=== PATIENT | female | born 1985 | race Caucasian/White ===

== ENCOUNTER 2021-05-12 21:21 | Emergency (ER) | payer BC ==
[2021-05-12] MEDS ORDERED: SUBOXONE 2 MG-1 EACH SL (21:37)
[2021-05-12] MEDS ORDERED: MEDROL DOSEPAK4 MG PO (22:18)
== END 2021-05-12 22:35 | disposition home or self-care (01) ==
LOC: ED 21:21
DX: L25.9 Unspecified contact dermatitis, unspecified cause (principal); Z79.899 Other long term (current) drug therapy

== ENCOUNTER 2022-10-15 03:32 | Emergency (ER) | payer BC ==
[~2022-10-15] VITALS: Ht 170.1 cm; Wt 68.0 kg
[~2022-10-15 03:32] MED LIST: MEDROL DOSEPAK4 MG PO; SUBOXONE 2 MG-1 EACH SL
[2022-10-15] MEDS ORDERED: ZITHROMAX250 MG PO (05:10)
[2022-10-15] MEDS ORDERED: TOBREX3.5 GM OPH (05:38)
== END 2022-10-15 05:12 | disposition home or self-care (01) ==
LOC: ED 03:32
DX: J02.9 Acute pharyngitis, unspecified (principal)

== ENCOUNTER 2022-12-06 03:21 | Emergency (ER) | payer BC ==
[~2022-12-06] VITALS: Ht 172.7 cm; Wt 68.0 kg
[~2022-12-06 03:21] MED LIST changes: +TOBREX3.5 GM OPH; +ZITHROMAX250 MG PO
[2022-12-06 04:05] LABS: BASO % 0.4 % (0.0-1.0); EOS # 0.2 10*3/uL (0.0-0.4); EOS % 3.3 % (1.0-4.0); LYMPH # 1.7 10*3/uL (1.3-4.4); LYMPH % 33.6 % (27.0-41.0); MEAN CELL VOLUME 86.4 fl (81.0-99.0); MEAN CORPUSCULAR HGB 29.2 pg (27.0-31.0); MEAN CORPUSCULAR HGB CONC 33.8 g/dl (33.0-37.0); MEAN PLATELET VOLUME 10.9 fl (9.6-12.3); MONO # 0.6 10*3/uL (0.1-1.0); MONO % 11.2 % (3.0-9.0); NEUT # 2.5 10*3/uL (2.3-7.9); NEUT % 51.3 % (47.0-73.0); PLATELET COUNT AUTOMATED 255 10*3/uL (130-400); RED BLOOD COUNT 5.21 10*6/uL (4.10-5.10); RED CELL DISTRI WIDTH 11.9 % (0-14.5); WHITE BLOOD COUNT 4.9 10*3/uL (4.8-10.8)
[2022-12-06 04:15] LABS: INTERNATIONAL NORM RATIO 1.1 (2.0-3.5)
[2022-12-06 04:22] LABS: ALKALINE PHOSPHATASE 52 U/L (46-116); BUN 15 mg/dl (9-23); CHLORIDE 105 mmol/L (98-107); POTASSIUM 4.3 mmol/L (3.4-5.1); SGPT/ALT 12 U/L (10-49); TOTAL PROTEIN 6.9 gm/dL (6.0-8.0)
== END 2022-12-06 07:05 | disposition home or self-care (01) ==
LOC: ED 03:21
PROVIDERS: Emergency Medicine
DX: R00.2 Palpitations (principal); R07.9 Chest pain, unspecified

== ENCOUNTER 2024-02-02 00:51 | Emergency (ER) | payer OTHER, BC ==
[~2024-02-02] VITALS: Wt 68.0 kg
[2024-02-02] MEDS ORDERED: Ondansetron Hydrochloride 4 MG/2 ML VIAL IV ONE (04:05)
[2024-02-02] MEDS ORDERED: Thiamine 200 MG/2 ML VIAL IV ONE (04:05)
[2024-02-02] MEDS ORDERED: SODIUM CHLORIDE 0.9% 1,000 ML IV ONE (04:05)
[2024-02-02] MEDS ORDERED: HYDROmorphONE Hydrochloride 0.5 MG/0.5 ML SYRINGE IV ONE ×2 (04:40→05:25)
[2024-02-02] MEDS ORDERED: HYDROCODONE-AC1 EAC1 PO (05:47)
[2024-02-02] MEDS ORDERED: Bacitracin Zinc 14 GM TUBE T ONE (05:50)
== END 2024-02-02 06:00 | disposition home or self-care (01) ==
LOC: ED 00:51
DX: S52.501A Unspecified fracture of the lower end of right radius, initial encounter for closed fracture (principal); S52.601A Unspecified fracture of lower end of right ulna, initial encounter for closed fracture; V49.9XXA Car occupant (driver) (passenger) injured in unspecified traffic accident, initial encounter; Y93.89 Activity, other specified; Y92.410 Unspecified street and highway as the place of occurrence of the external cause; Y99.9 Unspecified external cause status

== ENCOUNTER → 2024-02-03 | Outpatient (CLI) | payer BC ==
[~2024-02-03] MED LIST changes: +HYDROCODONE-AC1 EAC1 PO
== END | disposition home or self-care (01) ==
LOC: ORTHO 10:20
PROVIDERS: ATTEND Orthopaedic Surgery
DX: S52.511A Displaced fracture of right radial styloid process, initial encounter for closed fracture (principal); S63.024A Dislocation of radiocarpal joint of right wrist, initial encounter; S62.101A Fracture of unspecified carpal bone, right wrist, initial encounter for closed fracture; V29.99XA Rider (driver) (passenger) of other motorcycle injured in unspecified traffic accident, initial encounter; Y93.89 Activity, other specified; Y92.89 Other specified places as the place of occurrence of the external cause; Y99.8 Other external cause status

== ENCOUNTER → 2024-02-06 | Day surgery (SDC) | payer BC ==
[2024-02-05 10:32] VITALS: BP 122/81
[~2024-02-06] VITALS: Ht 170.1 cm; Wt 70.3 kg
[~2024-02-06] MED LIST changes: +CEFAZOLIN SODIUM IV SCH; +DEXAMETHASONE SODIUM PHOSP/PRESERVATIVE FREE 10 MG/ML VIAL ONE; +HYDROmorphONE Hydrochloride 1 MG/ML SYR IV ONE; +HYDROmorphONE Hydrochloride 1 ML IV ONE; +INFUSION IV SCH; +Lactated Ringer's Solution 1,000 ML IV ONE; +Lactated Ringer's Solution 1,000 ML IV SCH; +Midazolam Hydrochloride 2 MG/2 ML VIAL IV STA; +Midazolam Hydrochloride 2 MG/2 ML VIAL ONE; +PROPOFOL 200 MG/20 ML VIAL IV ONE; +Ropivacaine Hydrochloride 5 MG/ML 20 ML AMP IJ ONE; +SEVOFLURANE 250 ML BOT INH ONE; +SODIUM CHLOR IV SCH; +ceFAZolin sodium/sodium chlor 20 ML IV ONE
[2024-02-06 07:45] VITALS: BP 124/76
[2024-02-06 10:06] VITALS: BP 130/55
[2024-02-06 10:21] VITALS: BP 126/58
[2024-02-06 10:36] VITALS: BP 127/80
[2024-02-06 10:51] VITALS: BP 118/74
[2024-02-06 11:01] VITALS: BP 110/68
== END | disposition home or self-care (01) ==
LOC: SDC 03:25
PROVIDERS: ATTEND Orthopaedic Surgery
DX: S52.571A Other intraarticular fracture of lower end of right radius, initial encounter for closed fracture (principal); F10.90 Alcohol use, unspecified, uncomplicated; Z87.891 Personal history of nicotine dependence; Z98.890 Other specified postprocedural states; Z79.899 Other long term (current) drug therapy; Z79.891 Long term (current) use of opiate analgesic; X58.XXXA Exposure to other specified factors, initial encounter; Y93.89 Activity, other specified; Y92.89 Other specified places as the place of occurrence of the external cause; Y99.8 Other external cause status

== ENCOUNTER → 2024-02-19 | Outpatient (CLI) | payer BC ==
[~2024-02-19] MED LIST changes: -CEFAZOLIN SODIUM IV SCH; -DEXAMETHASONE SODIUM PHOSP/PRESERVATIVE FREE 10 MG/ML VIAL ONE; -HYDROmorphONE Hydrochloride 1 MG/ML SYR IV ONE; -HYDROmorphONE Hydrochloride 1 ML IV ONE; -INFUSION IV SCH; -Lactated Ringer's Solution 1,000 ML IV ONE; -Lactated Ringer's Solution 1,000 ML IV SCH; -Midazolam Hydrochloride 2 MG/2 ML VIAL IV STA; -Midazolam Hydrochloride 2 MG/2 ML VIAL ONE; -PROPOFOL 200 MG/20 ML VIAL IV ONE; -Ropivacaine Hydrochloride 5 MG/ML 20 ML AMP IJ ONE; -SEVOFLURANE 250 ML BOT INH ONE; -SODIUM CHLOR IV SCH; -ceFAZolin sodium/sodium chlor 20 ML IV ONE
== END | disposition home or self-care (01) ==
LOC: ORTHO 09:04
PROVIDERS: ATTEND Orthopaedic Surgery
DX: S52.511D Displaced fracture of right radial styloid process, subsequent encounter for closed fracture with routine healing (principal); X58.XXXD Exposure to other specified factors, subsequent encounter

== ENCOUNTER → 2024-03-04 | Outpatient (CLI) | payer BC | END | disposition home or self-care (01) | LOC: ORTHO 02:57 | PROVIDERS: ATTEND Orthopaedic Surgery | DX: S52.511D Displaced fracture of right radial styloid process, subsequent encounter for closed fracture with routine healing (principal); X58.XXXD Exposure to other specified factors, subsequent encounter ==

== ENCOUNTER → 2024-03-18 | Outpatient (CLI) | payer BC | END | disposition home or self-care (01) | LOC: ORTHO 01:46 | PROVIDERS: ATTEND Orthopaedic Surgery | DX: S52.511D Displaced fracture of right radial styloid process, subsequent encounter for closed fracture with routine healing (principal); X58.XXXD Exposure to other specified factors, subsequent encounter ==

== ENCOUNTER → 2024-04-29 | Outpatient (CLI) | payer BC | END | disposition home or self-care (01) | LOC: ORTHO 02:16 | PROVIDERS: ATTEND Orthopaedic Surgery | DX: S52.511D Displaced fracture of right radial styloid process, subsequent encounter for closed fracture with routine healing (principal); M19.031 Primary osteoarthritis, right wrist; X58.XXXD Exposure to other specified factors, subsequent encounter ==

== ENCOUNTER 2025-01-15 15:36 | Emergency (ER) | payer BC ==
[~2025-01-15] VITALS: Ht 170.1 cm; Wt 68.0 kg
== END 2025-01-15 16:34 | disposition home or self-care (01) ==
LOC: ED 15:36
DX: T19.2XXA Foreign body in vulva and vagina, initial encounter (principal); W44.8XXA Other foreign body entering into or through a natural orifice, initial encounter

== ENCOUNTER → 2025-03-12 | Outpatient (CLI) | payer BC ==
[2025-03-12 09:34] LABS: BASO % 0.4 % (0.0-1.0); EOS # 0.1 10*3/uL (0.0-0.4); EOS % 2.5 % (1.0-4.0); HEMATOCRIT 40.8 % (37.0-47.0); MEAN CELL VOLUME 79.7 fl (81.0-99.0); MEAN CORPUSCULAR HGB 26.8 pg (27.0-31.0); MEAN CORPUSCULAR HGB CONC 33.6 g/dl (33.0-37.0); MEAN PLATELET VOLUME 11.1 fl (9.6-12.3); MONO # 0.4 10*3/uL (0.1-1.0); MONO % 6.7 % (3.0-9.0); NEUT % 54.9 % (47.0-73.0); PLATELET COUNT AUTOMATED 289 10*3/uL (130-400); RED BLOOD COUNT 5.12 10*6/uL (4.10-5.10); RED CELL DISTRI WIDTH 14.3 % (0-14.5); WHITE BLOOD COUNT 5.5 10*3/uL (4.8-10.8)
[2025-03-12 10:10] LABS: ALKALINE PHOSPHATASE 61 U/L (46-116); BUN 12 mg/dl (9-23); CHLORIDE 105 mmol/L (98-107); CHOLESTEROL 235 mg/dL (<200); FREE T4 1.26 ng/dl (0.89-1.76); LDL CHOLESTEROL 163 mg/dL (9-159); POTASSIUM 3.9 mmol/L (3.4-5.1); SGPT/ALT 13 U/L (5-49); TOTAL PROTEIN 7.5 gm/dL (6.0-8.0); TRIGLYCERIDES 81 mg/dl (<150)
[2025-03-12 10:33] LABS: VITAMIN D, 25-HYDROXY 67.3 ng/mL (30-100)
[2025-03-13 06:07] LABS: HEP B SURFACE Ab, Qual Reactive (.)
== END | disposition home or self-care (01) ==
LOC: LAB 09:03
PROVIDERS: ATTEND Student in an Organized Health Care Education/Training Program
DX: E78.5 Hyperlipidemia, unspecified (principal); E55.9 Vitamin D deficiency, unspecified; G62.9 Polyneuropathy, unspecified; N92.6 Irregular menstruation, unspecified; R79.89 Other specified abnormal findings of blood chemistry; R89.9 Unspecified abnormal finding in specimens from other organs, systems and tissues; R53.83 Other fatigue

== ENCOUNTER 2025-04-24 00:53 | Emergency (ER) | payer BC ==
[~2025-04-24] VITALS: Ht 170.1 cm; Wt 63.5 kg
[2025-04-24] MEDS ORDERED: Midazolam Hydrochloride 2 MG/2 ML VIAL IV ONE ×2 (03:00→05:40)
[2025-04-24] MEDS ORDERED: MORPHINE Sulfate 2 MG/ML SYR IV ONE (05:15)
[2025-04-24] MEDS ORDERED: Ondansetron Hydrochloride 4 MG/2 ML VIAL IV ONE (05:15)
[2025-04-24] MEDS ORDERED: fentaNYL CITRATE/PF 50 MCG/ML SYRINGE IV ONE (05:25)
[2025-04-24] MEDS ORDERED: MORPHINE Sulfate 2 MG/ML SYR ONE (05:31)
[2025-04-24] MEDS ORDERED: HYDROCODONE-AC1 EAC1 PO (08:06)
[2025-04-29] MEDS ORDERED: HYDROCODONE-AC1 EAC2 PO (09:15)
== END 2025-04-24 08:25 | disposition home or self-care (01) ==
LOC: ED 00:53
DX: S52.502A Unspecified fracture of the lower end of left radius, initial encounter for closed fracture (principal); S52.602A Unspecified fracture of lower end of left ulna, initial encounter for closed fracture; W17.89XA Other fall from one level to another, initial encounter; Y93.89 Activity, other specified; Y92.89 Other specified places as the place of occurrence of the external cause; Y99.8 Other external cause status

== ENCOUNTER → 2025-04-29 | Day surgery (SDC) | payer BC ==
[2025-04-28 12:18] LABS: BUN 12 mg/dl (9-23)
[~2025-04-29] VITALS: Ht 170.1 cm; Wt 68.0 kg
[~2025-04-29] MED LIST changes: +ACETAMINOPHEN 100 ML IV ONE; +Dexamethasone Sodium Phospha 4 MG/ML VIAL IV ONE; +HYDROCODONE-AC1 EAC2 PO; +HYDROmorphONE Hydrochloride 0.5 MG/0.5 ML SYRINGE IV PRN; +HYDROmorphONE Hydrochloride 0.5 MG/0.5 ML SYRINGE ONE; +Lidocaine Hydrochloride 30 ML VIAL ONE; +Lidocaine Hydrochloride 5 ML VIAL IV ONE; +Midazolam Hydrochloride 2 MG/2 ML VIAL IV ONE; +Ondansetron Hydrochloride 4 MG/2 ML VIAL IV ONE; +PROPOFOL 200 MG/20 ML VIAL IV ONE; +Ropivacaine Hydrochloride 5 MG/ML 20 ML AMP IJ ONE; +SEVOFLURANE 250 ML BOT INH ONE; +SODIUM CHLORIDE 0.9% 1,000 ML IV ONE; +SODIUM CHLORIDE 0.9% 1,000 ML IV SCH; +ceFAZolin sodium/sodium chlor 20 ML IV ONE
[2025-04-29 08:57] VITALS: BP 122/75
[2025-04-29 13:20] VITALS: BP 100/55
[2025-04-29 13:35] VITALS: BP 115/72
[2025-04-29 13:50] VITALS: BP 122/71
[2025-04-29 14:05] VITALS: BP 129/85
[2025-04-29 14:30] VITALS: BP 116/69
== END | disposition home or self-care (01) ==
LOC: SDC 04-27 11:00
PROVIDERS: ATTEND Orthopaedic Surgery
DX: S52.572A Other intraarticular fracture of lower end of left radius, initial encounter for closed fracture (principal); S52.612A Displaced fracture of left ulna styloid process, initial encounter for closed fracture; G62.9 Polyneuropathy, unspecified; Z79.899 Other long term (current) drug therapy; Z87.891 Personal history of nicotine dependence; W19.XXXA Unspecified fall, initial encounter; Y93.89 Activity, other specified; Y92.89 Other specified places as the place of occurrence of the external cause; Y99.8 Other external cause status

== ENCOUNTER 2025-04-30 01:32 | Emergency (ER) | payer BC ==
[~2025-04-30] VITALS: Ht 170.1 cm; Wt 63.5 kg
[~2025-04-30 01:32] MED LIST changes: -ACETAMINOPHEN 100 ML IV ONE; -Dexamethasone Sodium Phospha 4 MG/ML VIAL IV ONE; -HYDROmorphONE Hydrochloride 0.5 MG/0.5 ML SYRINGE IV PRN; -HYDROmorphONE Hydrochloride 0.5 MG/0.5 ML SYRINGE ONE; -Lidocaine Hydrochloride 30 ML VIAL ONE; -Lidocaine Hydrochloride 5 ML VIAL IV ONE; -Midazolam Hydrochloride 2 MG/2 ML VIAL IV ONE; -Ondansetron Hydrochloride 4 MG/2 ML VIAL IV ONE; -PROPOFOL 200 MG/20 ML VIAL IV ONE; -Ropivacaine Hydrochloride 5 MG/ML 20 ML AMP IJ ONE; -SEVOFLURANE 250 ML BOT INH ONE; -SODIUM CHLORIDE 0.9% 1,000 ML IV ONE; -SODIUM CHLORIDE 0.9% 1,000 ML IV SCH; -ceFAZolin sodium/sodium chlor 20 ML IV ONE
[2025-04-30] MEDS ORDERED: HYDROmorphONE Hydrochloride 0.5 MG/0.5 ML SYRINGE IV ONE ×4 (02:00→03:55)
[2025-04-30] MEDS ORDERED: Ondansetron Hydrochloride 4 MG/2 ML VIAL IV ONE (02:00)
== END 2025-04-30 04:10 | disposition home or self-care (01) ==
LOC: ED 01:32
DX: G89.18 Other acute postprocedural pain (principal); M25.532 Pain in left wrist

== ENCOUNTER 2025-04-30 16:05 | Emergency (ER) | payer BC ==
[~2025-04-30] VITALS: Ht 1737 cm; Wt 63.5 kg
[2025-04-30] MEDS ORDERED: HYDROmorphONE Hydrochloride 0.5 MG/0.5 ML SYRINGE IM ONE (17:10)
== END 2025-04-30 18:11 | disposition home or self-care (01) ==
LOC: ED 16:05
DX: G89.18 Other acute postprocedural pain (principal); M25.532 Pain in left wrist; Z79.899 Other long term (current) drug therapy; Z98.890 Other specified postprocedural states

== ENCOUNTER → 2025-05-14 | Outpatient (CLI) | payer BC | END | disposition home or self-care (01) | LOC: ORTHO 02:03 | PROVIDERS: ATTEND Orthopaedic Surgery | DX: S52.572A Other intraarticular fracture of lower end of left radius, initial encounter for closed fracture (principal); M24.69 Ankylosis, other specified joint; X58.XXXA Exposure to other specified factors, initial encounter; Y93.89 Activity, other specified; Y92.89 Other specified places as the place of occurrence of the external cause; Y99.8 Other external cause status ==

== ENCOUNTER → 2025-06-11 | Outpatient (CLI) | payer BC | END | disposition home or self-care (01) | LOC: ORTHO 02:31 | PROVIDERS: ATTEND Orthopaedic Surgery | DX: S52.572A Other intraarticular fracture of lower end of left radius, initial encounter for closed fracture (principal); X58.XXXA Exposure to other specified factors, initial encounter; Y93.89 Activity, other specified; Y92.89 Other specified places as the place of occurrence of the external cause; Y99.8 Other external cause status ==

== ENCOUNTER → 2025-06-21 | Outpatient (CLI) | payer BC ==
[2025-06-21 14:32] LABS: MEAN CELL VOLUME 83.9 fl (81.0-99.0); MEAN CORPUSCULAR HGB 27.9 pg (27.0-31.0); MEAN PLATELET VOLUME 11.3 fl (9.6-12.3); NUCLEATED RED BLOOD CELL 0.0 % (0.0-0.0); NUCLEATED RED BLOOD CELL 0.0 10*3/uL (0.0-0.0); PLATELET COUNT AUTOMATED 292.0 10*3/uL (130-400); RED CELL DISTRI WIDTH 14.4 % (0-14.5)
== END ==
LOC: LAB 13:18 → RAD 13:30
PROVIDERS: Student in an Organized Health Care Education/Training Program; ATTEND Orthopaedic Surgery
DX: M81.0 Age-related osteoporosis without current pathological fracture (principal); Z13.820 Encounter for screening for osteoporosis